=== PATIENT | male | born 1985 | race Caucasian/White ===

== ENCOUNTER → 2016-11-30 | Outpatient (CLI) | payer OTHER ==
[~2016-11-30] VITALS: Ht 177.8 cm; Wt 85.3 kg
[~2016-11-30] MED LIST: DICY20TA35 PO; IMT100 PO; ONDA4TAB7 SL
[2016-11-30 13:18] VITALS: BP 130/86; PULSE 73; Ht 177.8 cm; Wt 85.3 kg
== END | disposition home or self-care (01) ==
LOC: C.NEUR 13:03
PROVIDERS: ATTEND Physician Assistant Medical
DX: G47.30 Sleep apnea, unspecified (principal); I48.91 Unspecified atrial fibrillation